=== PATIENT | male | born 1955 | race Caucasian/White ===

== ENCOUNTER 2020-05-29 13:44 | Inpatient (IN) ==
[2020-05-29 14:35] LABS: Basophils % 0.6 %; Eosinophils # 0.2 K/mcL (0.0-0.6); Eosinophils % 2.1 %; Hematocrit 46.7 % (37.5-50.1); Hemoglobin 14.9 g/dL (12.9-16.9); Immature Granulocytes % 0.9 % (0-4); Lymphocytes # 1.7 K/mcL (0.6-4.6); Lymphocytes % 24.4 %; Mean Corpuscular HGB Conc 31.9 g/dL (31.6-35.5); Mean Corpuscular Hemoglobin 31.2 pg (28.0-33.3); Mean Corpuscular Volume 97.9 fL (83.0-100.0); Mean Platelet Volume 10.7 fL (9.4-12.4); Monocytes # 0.7 K/mcL (0.0-1.3); Monocytes % 9.3 %; Neutrophils # 4.4 K/mcL (1.6-8.9); Platelet Count 167 K/mcL (140-400); Red Blood Count 4.77 M/mcL (4.19-5.50); Red Cell Distribution Width 13.2 % (11.5-14.5); Segmented Neutrophils % 62.7 %
[2020-05-29 14:36] LABS: INR 1.1; Prothrombin Time 12.6 Seconds (9.4-12.1)
[2020-05-29 14:39] LABS: Activated Partial Thrombo Time 32.7 Seconds (26.0-36.0)
[2020-05-29 14:52] LABS: BUN/Creatinine Ratio 15 (6-26); Blood Urea Nitrogen 20 mg/dL (8-23); Carbon Dioxide 28 mEq/L (23-29); Chloride 103 mEq/L (98-107); Glucose 111 mg/dL (70-105); Osmolality,Calculated 293 (280-300); Potassium 4.5 mEq/L (3.5-5.1); Sodium 140 mEq/L (136-145); eGFR For African Americans > 60 (> 60); eGFR For Non-African Americans 52 (> 60)
[2020-05-29 14:53] LABS: Troponin I < 0.03 ng/mL (< 0.04)
[2020-05-29 15:56] LABS: Alanine Aminotransferase 21 Units/L (7-52); Albumin 3.8 g/dL (3.5-5.7); Albumin/Globulin Ratio 1.1 (1.1-2.2); Alkaline Phosphatase 123 Units/L (34-104); Aspartate Amino Transferase 20 Units/L (13-39); Bilirubin,Direct 0.2 mg/dL (0.0-0.2); Bilirubin,Indirect 0.4 mg/dL (0.0-1.0); Bilirubin,Total 0.6 mg/dL (0.3-1.0); Globulin 3.5 g/dL (2.4-3.5); Total Protein 7.3 g/dL (6.4-8.9)
[2020-05-29 16:32] LABS: Adenovirus Not Detected (Not Detect); Bordetella Pertussis Not Detected (Not Detect); Chlamydophila pneumoniae Not Detected (Not Detect); Coronavirus 229E Not Detected (Not Detect); Coronavirus HKU1 Not Detected (Not Detect); Coronavirus NL63 Not Detected (Not Detect); Coronavirus OC43 Not Detected (Not Detect); Human Metapneumovirus Not Detected (Not Detect); Human Rhinovirus/Enterovirus Not Detected (Not Detect); Influenza A Subtype 2009 H1 Not Detected (Not Detect); Influenza B Not Detected (Not Detect); Mycoplasma pneumoniae Not Detected (Not Detect); Parainfluenza Virus 1 Not Detected (Not Detect); Parainfluenza Virus 2 Not Detected (Not Detect); Parainfluenza Virus 3 Not Detected (Not Detect); Parainfluenza Virus 4 Not Detected (Not Detect); Respiratory Syncytial Virus Not Detected (Not Detect); SARS-CoV-2 Not Detected (Not Detect)
[2020-05-29] MEDS ORDERED: Pregabalin 75 MG CAPSULE PO ONE (17:01)
[2020-05-29] MEDS ORDERED: Mag Hydrox/Al Hydrox/Simeth 30 ML UDC PO PRN (18:12)
[2020-05-29] MEDS ORDERED: Ondansetron 4 MG/2 ML VIAL IVP PRN (18:12)
[2020-05-29] MEDS ORDERED: MOM Conc 10 ML UD.LIQ PO PRN (18:12)
[2020-05-29] MEDS ORDERED: Naloxone 0.4 MG/ML INJ IVP PRN (18:12)
[2020-05-29] MEDS ORDERED: Dextrose Gel 15 GM/37.5 ML TUBE PO PRN ×2 (18:20)
[2020-05-29] MEDS ORDERED: D5% in Water 1,000 ML IVC PRN (18:20)
[2020-05-29] MEDS ORDERED: *HR* Dextrose 50 % in Water (Vial) 50 ML VIAL IVP PRN (18:20)
[2020-05-29] MEDS ORDERED: Perflutren Lipid Microsphere 1.3 ML in 0.9 % Sodium Chloride 8.7 ML IVP PRN (18:22)
[2020-05-29 20:30] LABS: Estimated Average Glucose 177 mg/dl
[2020-05-29] MEDS: Pregabalin 50 MG CAPSULE PO SCH (20:44)
[2020-05-29] MEDS: Lactulose Oral Soln 20 GM/30 ML UDC PO SCH (20:44)
[2020-05-29] MEDS: Insulin LISPRO 300 UNITS/3 ML VIAL SQ SCH (20:45)
[2020-05-29] MEDS: *HR* OxyCODONE Immed Rel 5 MG TABLET PO SCH (22:29)
[2020-05-30] MEDS ORDERED: *HR* OxyCODONE Immed Rel 5 MG TABLET PO SCH
[2020-05-30 00:52] LABS: Hematocrit 43.3 % (37.5-50.1); Hemoglobin 14.1 g/dL (12.9-16.9); Mean Corpuscular HGB Conc 32.6 g/dL (31.6-35.5); Mean Corpuscular Hemoglobin 31.3 pg (28.0-33.3); Mean Platelet Volume 10.9 fL (9.4-12.4); Platelet Count 152 K/mcL (140-400); Red Blood Count 4.51 M/mcL (4.19-5.50); White Blood Count 6.6 K/mcL (4.3-11.1)
[2020-05-30 01:10] LABS: BUN/Creatinine Ratio 17 (6-26); Blood Urea Nitrogen 22 mg/dL (8-23); Calcium 8.5 mg/dL (8.6-10.3); Carbon Dioxide 24 mEq/L (23-29); Chloride 103 mEq/L (98-107); Chol/HDL Ratio 5.1 (0-4.9); Cholesterol 185 mg/dL (< 200); Glucose 128 mg/dL (70-105); HDL Cholesterol 36 mg/dL (40-59); LDL Cholesterol,Calculated 125 mg/dL (< 100); Magnesium 1.8 mg/dL (1.6-2.6); Osmolality,Calculated 283 (280-300); Phosphorous 2.9 mg/dL (2.7-4.5); Potassium 4.3 mEq/L (3.5-5.1); Sodium 134 mEq/L (136-145); Triglycerides 119 mg/dL (< 150); eGFR For African Americans > 60 (> 60); eGFR For Non-African Americans 55 (> 60)
[2020-05-30] MEDS: Acetaminophen 325 MG TABLET PO PRN (01:36)
[2020-05-30] MEDS: *HR* OxyCODONE Immed Rel 5 MG TABLET PO SCH ×4 (06:11→21:11)
[2020-05-30] MEDS: Insulin LISPRO 300 UNITS/3 ML VIAL SQ SCH ×4 (07:35→21:12)
[2020-05-30] MEDS: Pregabalin 50 MG CAPSULE PO SCH ×3 (08:25→21:04)
[2020-05-30] MEDS: Lactulose Oral Soln 20 GM/30 ML UDC PO SCH ×3 (08:33→21:12)
[2020-05-31] MEDS: *HR* OxyCODONE Immed Rel 5 MG TABLET PO SCH ×4 (05:16→22:01)
[2020-05-31 05:53] LABS: BUN/Creatinine Ratio 18 (6-26); Blood Urea Nitrogen 25 mg/dL (8-23); Calcium 8.7 mg/dL (8.6-10.3); Carbon Dioxide 24 mEq/L (23-29); Chloride 101 mEq/L (98-107); Glucose 188 mg/dL (70-105); Osmolality,Calculated 287 (280-300); Potassium 4.1 mEq/L (3.5-5.1); Sodium 134 mEq/L (136-145); eGFR For African Americans > 60 (> 60); eGFR For Non-African Americans 52 (> 60)
[2020-05-31] MEDS: Pregabalin 50 MG CAPSULE PO SCH ×3 (07:42→20:01)
[2020-05-31] MEDS: Insulin LISPRO 300 UNITS/3 ML VIAL SQ SCH ×4 (07:42→20:01)
[2020-05-31] MEDS: Lactulose Oral Soln 20 GM/30 ML UDC PO SCH ×3 (07:52→19:53)
[2020-06-01] MEDS: *HR* OxyCODONE Immed Rel 5 MG TABLET PO SCH ×4 (06:55→21:38)
[2020-06-01] MEDS: Insulin LISPRO 300 UNITS/3 ML VIAL SQ SCH ×4 (08:59→21:33)
[2020-06-01] MEDS: Lactulose Oral Soln 20 GM/30 ML UDC PO SCH ×4 (09:13→22:01)
[2020-06-01] MEDS: Pregabalin 50 MG CAPSULE PO SCH ×3 (09:16→21:35)
[2020-06-01 14:10] LABS: Adenovirus Not Detected (Not Detect); Coronavirus 229E Not Detected (Not Detect); Coronavirus HKU1 Not Detected (Not Detect); Coronavirus NL63 Not Detected (Not Detect); Coronavirus OC43 Not Detected (Not Detect)
[2020-06-01 14:11] LABS: Bordetella Pertussis Not Detected (Not Detect); Chlamydophila pneumoniae Not Detected (Not Detect); Human Metapneumovirus Not Detected (Not Detect); Human Rhinovirus/Enterovirus Not Detected (Not Detect); Influenza A Subtype 2009 H1 Not Detected (Not Detect); Influenza B Not Detected (Not Detect); Mycoplasma pneumoniae Not Detected (Not Detect); Parainfluenza Virus 1 Not Detected (Not Detect); Parainfluenza Virus 2 Not Detected (Not Detect); Parainfluenza Virus 3 Not Detected (Not Detect); Parainfluenza Virus 4 Not Detected (Not Detect); Respiratory Syncytial Virus Not Detected (Not Detect); SARS-CoV-2 DETECTED (Not Detect)
[2020-06-02] MEDS: *HR* OxyCODONE Immed Rel 5 MG TABLET PO SCH ×4 (05:36→22:31)
[2020-06-02] MEDS: Pregabalin 50 MG CAPSULE PO SCH ×3 (08:42→20:44)
[2020-06-02] MEDS: Lactulose Oral Soln 20 GM/30 ML UDC PO SCH ×4 (08:43→20:42)
[2020-06-02] MEDS: Insulin LISPRO 300 UNITS/3 ML VIAL SQ SCH ×4 (08:44→20:44)
[2020-06-03] MEDS: Acetaminophen 325 MG TABLET PO PRN ×2 (00:42→15:42)
[2020-06-03] MEDS: *HR* OxyCODONE Immed Rel 5 MG TABLET PO SCH ×4 (05:56→22:36)
[2020-06-03] MEDS: Lactulose Oral Soln 20 GM/30 ML UDC PO SCH ×3 (08:54→20:10)
[2020-06-03] MEDS: Pregabalin 50 MG CAPSULE PO SCH ×3 (08:54→20:10)
[2020-06-03] MEDS: Insulin LISPRO 300 UNITS/3 ML VIAL SQ SCH ×4 (08:55→20:57)
[2020-06-03 19:07] VITALS: BP 140/67
== END 2020-06-03 23:50 | DRG 179 ==
LOC: EMEROOARM 13:44 → 3BNU 13:44 → SUATTDRO 05-30 10:52 → 2NENU 06-01 19:57
PROVIDERS: ADMIT Student in an Organized Health Care Education/Training Program; ATTEND Internal Medicine